=== PATIENT | female | born 1980 | race Caucasian/White ===

== ENCOUNTER 2018-04-12 12:12 | Day surgery (SDC) | payer BC, SELFPAY ==
[2018-04-12 09:21] LABS: Hematocrit 42.3 % (37-47); Hemoglobin 14.3 g/dl (12.0-15.0); Mean Corp Hgb Conc 33.8 g/gl (32-36); Mean Corpuscular Hgb 31.8 pg (27.0-32.0); Mean Corpuscular Volume 94.2 fL (81-99); Mean Platelet Vol. 8.9 fl (6.2-12.0); Platelet Count 274 K/mm3 (150-450); RBC Distribution Width CV 12.1 % (11.6-14.6); RBC Distribution Width SD 41.1 fl (35.1-43.9); Red Blood Count 4.49 M/mm3 (4.2-5.4); White Blood Count 5.7 K/mm3 (4.4-11.0)
[2018-04-12 09:22] LABS: Scan Indicated on CBC? Y/N NO
[2018-04-12 09:41] LABS: Partial Thromboplast Time 28.4 Seconds (24.1-36.2)
[2018-04-12 09:52] LABS: Cholesterol 215 mg/dL (200); Glucose 91 mg/dL (74-106); High Density Lipoprotein 68 mg/dL; Triglycerides 62 mg/dL; Very Low Density Lipoprotein 12 mg/dL (5-40)
[2018-04-12 09:57] LABS: International Normalized Ratio 1.3; Prothrombin Time (Protime)PT. 15.8 SECONDS (11.7-14.9)
[2018-04-12 10:20] LABS: Fibrinogen 87 mg/dl (203-444)
[2018-04-12 12:31] LABS: Internal QC Validated? YES +Cl - CLEAR BKGD; Pregnancy, Urine Negative Negative
[2018-04-12 12:33] VITALS: BP 139/91; PULSE 75; RESP 18; TEMP 37.3; O2SAT 100; BMI 25.9
--- NOTE | 2018-04-12 13:45 | EMB_PTH ---
PATIENT: YUNIEL ROLLE LOC: [facility] U#:[id number] AGE/SX: 37/F ROOM: RE04/12/[address]: Dr. Anupama Montgomery, MDDOB: 1980 BED: DIS: 04/12/2018 SPEC #: [id number] RECD: 04/12/18 15:16 STATUS: ALVA RADHA #: [id number] COLLEEN: 04/12/18 13:[address]: Anupama Montgomery DEPT: SURGICAL PATHOLOGY RECD BY: Chacho Hansen ENTERED: 04/13/18 09:35 SP TYPE: ENDOM BX/C FAREED DR: Out of [facility] Doctor Tissues: Endometrium, NOS Procedures: Surgery Specimen Level IV HEADER OPERATION: Hysteroscopy, D & C, Symphion PRE-OP DIAGNOSIS: Endometrial polyp TISSUE SUBMITTED: Endometrial curettings and endometrial polyp MICROSCOPIC DIAGNOSIS Endometrial curettings and endometrial polyp: Disordered proliferative endometrium. REYNA:jonathan 04/16/18 MICROSCOPIC DESCRIPTION Slides are reviewed. GROSS DESCRIPTION Received in fixative is one container labeled with the patient's name and designated endometrial curettings and polyp. The specimen consists of multiple irregular fragments of pink-[place] soft tissue that in aggregate measure 5 x 3 x 0.2 cm. The specimen is totally submitted in two cassettes. / AM:jonathan 04/13/18 TC:5 CPT: 26159
--- NOTE | 2018-04-12 14:29 | PCM.OPRPT ---
Report of Operation Date of Procedure: 04/12/18 Pre-Operative Diagnosis: AUB, Endometrial polyp Post-Operative Diagnosis: same Surgery/Procedure Performed:: Hysteroscopy, D&C, polypectomy with Symphion Description of Surgical Findings:: Multiple endometrial polyps noted Type of Anesthesia:: MAC Specimen's removed: endometrial polyps and endometrial curettings Drains: none Estimated Blood Loss (mL): 5 Fluids Replaced: 500 Description of Procedure: Informed consent was obtained the patient was taken the operating room she was placed in supine position. She was given anesthesia. She was then placed in the [facility] where she was prepped and draped in the normal sterile fashion. At this time the weighted speculum was placed in the posterior fornix of vagina. Single-tooth tenaculum was used to gently grasp the anterior lip the cervix. At this time the uterine cavity was sounded to approximately 8 cm. Gentle dilatation was performed once adequate dilatation of the cervix was achieved the hysteroscope using normal saline as a distention medium was placed. abundant Endometrial tissue with endometrial polyps presents. Tubal ostia visualized. Symphion used for resection of polyps and Endometrial curettings. This will be sent to pathology for evaluation. Procedure complete and successful there were no complications. Anticipated normal postoperative course. Instrument lap count correct ?2. Vaginal Sweep was negative. - Complications none - Admit VTE Documentation VTE Present on Admission: Yes VTE Mechan Device Prophylaxis: SCD's VTE Pharm Prophylaxis ordered?: Yes
--- NOTE | 2018-04-12 14:33 | OP.PCM_ITS ---
Report of Operation Date of Procedure: 04/12/18 Pre-Operative Diagnosis: AUB, Endometrial polyp Post-Operative Diagnosis: same Surgery/Procedure Performed:: Hysteroscopy, D&C, polypectomy with Symphion Description of Surgical Findings:: Multiple endometrial polyps noted Type of Anesthesia:: MAC Specimen's removed: endometrial polyps and endometrial curettings Drains: none Estimated Blood Loss (mL): 5 Fluids Replaced: 500 Description of Procedure: Informed consent was obtained the patient was taken the operating room she was placed in supine position. She was given anesthesia. She was then placed in the [facility] where she was prepped and draped in the normal sterile fashion. At this time the weighted speculum was placed in the posterior fornix of vagina. Single-tooth tenaculum was used to gently grasp the anterior lip the cervix. At this time the uterine cavity was sounded to approximately 8 cm. Gentle dilatation was performed once adequate dilatation of the cervix was achieved the hysteroscope using normal saline as a distention medium was placed. abundant Endometrial tissue with endometrial polyps presents. Tubal ostia visualized. Symphion used for resection of polyps and Endometrial curettings. This will be sent to pathology for evaluation. Procedure complete and successful there were no complications. Anticipated normal postoperative course. Instrument lap count correct ?2. Vaginal Sweep was negative. - Complications none - Admit VTE Documentation VTE Present on Admission: Yes VTE Mechan Device Prophylaxis: SCD's VTE Pharm Prophylaxis ordered?: Yes
[2018-04-12 14:35] VITALS: BP 133/48; BP 139/91; PULSE 70; RESP 16; TEMP 36.5; O2SAT 99
[2018-04-12 14:40] VITALS: BP 137/80; BP 139/91; PULSE 72; RESP 16; O2SAT 100
--- NOTE | 2018-04-12 14:44 | PCM.DC.D&C ---
Discharge Diet: No Restrictions Discharge Activity: Return to Normal Activity, May Shower, May Take a Tub Bath - in 2 weeks. Allergies/Adverse Reactions: Allergies diltiazem Allergy (Verified 04/12/18 12:31) Rash naproxen sodium [From Aleve] Allergy (Verified 04/12/18 12:31) Rash verapamil Allergy (Verified 04/12/18 12:31) Rash Medications to take at Discharge ALPRAZolam [Xanax] 0.25 mg PO BID PRN PRN 04/05/18 Albuterol Inhaler [Ventolin Hfa (SP)] 1 puff INHALATION Q4H PRN PRN 04/05/18 Fluticasone 0.05% [Flonase Nasal [place]] 2 spray NASAL DAILY PRN 04/05/18 Loratadine [Claritin] 10 mg PO DAILY PRN 04/05/18 Metaxalone [Skelaxin] 800 mg PO PRN PRN 04/05/18 Montelukast [Singulair] 10 mg PO DAILY 04/05/18 Omeprazole 20 mg PO QODAY 04/05/18 Primary Care Physician: [facility] Doctor,Out of [Primary Care Provider] - Test Results: Test results from this visit will be discussed in further detail at your follow-up appointment, if applicable.
[2018-04-12 14:45] VITALS: BP 129/91; BP 139/91; PULSE 66; RESP 16; O2SAT 100
[2018-04-12 14:50] VITALS: BP 126/83; BP 139/91; PULSE 60; RESP 16; TEMP 36.5; O2SAT 100
[2018-04-12 15:34] VITALS: BP 139/91
== END 2018-04-12 15:36 | disposition home or self-care (01) ==
LOC: SDC 12:12 → AC 12:13
PROVIDERS: Anesthesiology; Referring Provider Obstetrics & Gynecology; Visit Provider Obstetrics & Gynecology
PROC: 0UB98ZZ Excision of Uterus, Via Natural or Artificial Opening Endoscopic (ICD-10-PCS; CPT 58558; principal; 2018-04-12 13:30)
DX: N84.0 Polyp of corpus uteri (principal); N93.9 Abnormal uterine and vaginal bleeding, unspecified; Z87.891 Personal history of nicotine dependence
CPT/HCPCS: 58558; 36415; 80061; 81025; 82947; 85027; 85384; 85610; 85730; 88305; J7120; J2405